=== PATIENT | male | born 2000 | race Caucasian/White ===

== ENCOUNTER 2025-05-06 23:45 | Day surgery (SDC) | payer OTHER, SELFPAY ==
[2025-05-07] VITALS (17 sets, daily range): BP systolic 117–145; BP diastolic 54–79; PULSE 49–92; RESP 16–20; TEMP 36.6–37.2; O2SAT 90–99; BMI 27.3
--- NOTE | 2025-05-07 00:25 | PC.NURSE ---
Tramaine was admitted from [place] [facility]. Report from RN Elsa [phone]. Patient received Flagyl/Rocephin at 2200 and Zofran, Toradol, and 1 L LR per [place] [facility]. Arrives with mom (Tomas) and friend. Updated with plan for telehealth provider to see patient and surgery tomorrow approximately 10:30 but subject to change-patient and family understand. IV 20# in RFA started in [place].
--- NOTE | 2025-05-07 02:32 | W.PM.THH&P_ITS ---
Telehealth- H&P: HPI History of Present Illness Date Seen: 05/07/25 Chief complaint: Surgery Narrative: Tramaine Lamar is seen as an Interactive Telehealth visit. Tramaine Lamar is a 24 year old male h/o depression presents with abdominal pain. Two days prior to admission patient felt funny. His head felt foggy. The next day, he developed generalized abdominal pain. In addition, he reports chills, nausea and diarrhea without melena and hematochezia. He denies fever, vomiting, dysuria, headaches. He also reports mild dizziness. He took tylenol prior to arrival to OSH ED and did feel better. Per discussion with general surgery, patient has the diagnosis of appendicitis. He was given ceftiraxone and metronidazole at the outside hospital. Family history mother: depression Father: none Social history Tobacco: none Alcohol 1-2 drinks per month Marijuana: every once in a while Medications: none allergies NKDA Review of Systems Status of ROS: Reports: 10 or more systems reviewed and unremarkable except as noted in History and below [facility] Medical History (Updated 05/07/25 @ 03:09 by Laney Keller MD) Depression ?F32.A - Depression, unspecified (ICD-10) Social History What is your current living situation?: I presently have a place to live Problems where you live: no known problems Problems where you live details: N/A In the past 12 months, utilities in danger of being shut off: no In past 12 months, lack of transportation kept you from medical appts, meetings, work, or getting things needed for daily living: no In the past 12 mos, have been you worried that your food would run out before you had money to buy more?: never true In the past 12 mos, the food you bought just didn't last and you didn't have money to buy more?: never true Highest level of school completed/degree received: high school graduate Smoking Status: Never smoker Do you use any of these nicotine containing products: Vaping Products Second hand tobacco smoke exposure: No How often do you have a drink containing alcohol: monthly or less Alcohol type: beer How many standard drinks containing alcohol do you have on a typical day: 1 or 2 AUDIT-C Alcohol total score: 1 Non-prescribed substance use: marijuana (any form) Caffeine: Yes How often does anyone, including family, friends and others, physically hurt you : never How often does anyone, including family, friends and others, insult or talk down to you: never How often does anyone, including family, friends and others, threaten you with harm: never How often does anyone, including family, friends and others, scream or curse at you: never service: Yes Meds Home Medications and Allergies Allergies Allergy/AdvReac Type Severity Reaction Status Date / Time No Known Drug Allergies Allergy Verified 05/07/25 01:09 Exam Narrative Exam Narrative: Physical Exam GENERAL: ?vital signs reviewed, well developed and nourished, in no distress HEENT: pupils are equal round and reactive to light, extraocular movements are grossly within normal limits and oral mucosa is moist. NECK: Supple without lymphadenopathy or thyromegaly according to nursing staff examination observation HEART: Regular rate and rhythm without any rubs, murmurs, or gallops. LUNGS: Clear to auscultation bilaterally with good air movement throughout ABDOMEN: Observation from nurse assisted exam, abdomen appears soft, generalized tenderness, and nondistended with Positive bowel sounds noted. EXTREMITIES: Strength and sensation is observed to be grossly within normal limits in the upper and lower extremities.? No focal strength deficit is observed. SKIN:? Observed warm and dry with color normal Const Vital Signs, click to edit/add: Vital Signs - 24 hr 05/07/25 00:00 Temperature 98.0 F Pulse Rate [Right Pulse Oximeter] 84 Respiratory Rate 16 Blood Pressure [Right Arm] 135/79 Pulse Oximetry 99 Oxygen Delivery Method Room Air Hospitalist - H&P: Result Labs Labs: from OSH WBC 11.7 H/H 16.8/49.2 Plt 260 lipase 23 Potassium 3.5 t. bili 0.[address] abd/pel per the radiology review Lung bases are clear. Liver is unremarkable. No biliary ductal dilatation. Gallbladder is normal. Mild splenic enlargement 16cm in length. No splenic mass. No perisplenic fluid. Pancrea, and adrenal glands are normal. kidneys, ureters, and bladder are normal. Normal size prostate. Mild dilatation of fluid-filled appendix, with mild associated appendiceal wall thickening and enhancement, compatible wiht early or mild acute appendicitis. The appendix lies in adriana anterior right lower quadrant... No periappendiceal fluid or abscess. Several borderline to mildly enlarged ileocolic nodes, likely reactive or inflammatory. Normal caliber abdominal aorta and IVC. Assessment and Plan Assessment and plan (1) Abdominal pain: Status: Acute Plan Appendicitis: per symptoms and CT imaging. General surgery is aware and have accepted patient. they plan to take patient to the OR in the morning. Patient received ceftriaxone and flagyl at outside hospital per discussion with ED staff. --continue IV abx --continue pain meds --continue IVF --recheck labs in Acute renal failure: likely due to hypovolemia from poor po intake and diarrhea --will hydrate and recheck renal status in AM. My hope is patient's labs show improvement prior to surgery h/o depression --no exacerbation at this time Full code DVT prophy : SCD Total Time Spent Total Time Spent: Patient seen via televideo. camera start time 234a Camera end time 247a Patietn was located in [facility] Provider was located at home and using [employer] equipment Telehealth: Statement Statement Telehealth Visit: Today's History and Physical is provided via interactive telehealth by Laney Keller MD.? Patient is located at [facility].? Provider is located at [employer] [facility].? Nursing staff assisted with the patient's exam. The visit being done today meets criteria for a telehealth visit and the patient or patient?s parent/guardian is aware the visit is a telehealth visit.
[2025-05-07] MEDS: POTASSIUM CHLORIDE 20 MEQ in 5 % DEXTROSE/0.45% SOD CHLOR 1,000 ML 75 MEQ IV (03:18)
[2025-05-07] MEDS: SODIUM CHLORIDE 0.9 % (FLUSH) 10 ML SYRINGE 5 ML IVF (03:19)
[2025-05-07] MEDS: metroNIDAZOLE 500 MG/100 ML PIGGYBACK 100 MG IVPB (06:17)
--- NOTE | 2025-05-07 06:37 | PC.NURSE ---
Addendum entered by Ludy Soto RN 05/07/25 08:05: Pt declined to change into gown upon admission when approached. Original Note: End of shift note [id number]: Pt A&Ox4 and able to make needs known. He is NPO at this time in prep for planned surgery today. Pt transferring/ambulating independently and has been continent of bladder. Pt's girlfriend spent the night and slept in recliner. Pt has been denying nausea and pain when asked.
--- NOTE | 2025-05-07 10:49 | P.GSCN_ITS ---
History of Present Illness Consult details Date Seen: 05/07/25 Consult date: 05/07/25 Narrative: 24-year-old male presented to outside hospital with right lower quadrant abdominal pain. Patient states that his pain started yesterday morning. The pain was described as sharp and throughout the day it became worse. Patient had nausea but no vomiting. He was passing gas. Because the pain was not improving, he presented to outside hospital. Patient was found to have elevated WBC of 11. An abdominal CT was obtained that I personally reviewed. His abdominal CT showed dilated wall enhancing appendix with minimal periappendiceal inflammation. There was no evidence of an abscess or phlegmon. Patient requested to come to the [facility], and was transferred to our hospital for surgical intervention. Patient continues to have abdominal pain but it is slightly improved. Review of Systems Narrative: General: no fevers HENT: no problems swallowing CV: no shortness of breath Resp: no cough GI: No nausea, vomiting, abdominal pain : no dysuria, no increased urinary frequency, no hematuria Skin: no new rashes Musculoskeletal: no back pain Neuro: no muscle weakness Psyche: no depression, no anxiety PFSH PFSH Medical History (Updated 05/07/25 @ 10:51 by Allen Solitario MD) Depression ?F32.A - Depression, unspecified (ICD-10) Surgical History (Updated 05/07/25 @ 10:51 by Allen Solitario MD) History of nasal surgery ?Z98.890 - Other specified postprocedural states (ICD-10) Social History (Updated 05/07/25 @ 10:51 by Allen Solitario MD) 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 What is your current living situation?: I presently have a place to live Problems where you live: no known problems Problems where you live details: N/A In the past 12 months, utilities in danger of being shut off: no In past 12 months, lack of transportation kept you from medical appts, meetings, work, or getting things needed for daily living: no In the past 12 mos, have been you worried that your food would run out before you had money to buy more?: never true In the past 12 mos, the food you bought just didn't last and you didn't have money to buy more?: never true Highest level of school completed/degree received: high school graduate Smoking Status: Never smoker Do you use any of these nicotine containing products: Vaping Products Second hand tobacco smoke exposure: No How often do you have a drink containing alcohol: monthly or less Alcohol type: beer How many standard drinks containing alcohol do you have on a typical day: 1 or 2 AUDIT-C Alcohol total score: 1 Non-prescribed substance use: marijuana (any form) Caffeine: Yes How often does anyone, including family, friends and others, physically hurt you : never How often does anyone, including family, friends and others, insult or talk down to you: never How often does anyone, including family, friends and others, threaten you with harm: never How often does anyone, including family, friends and others, scream or curse at you: never service: Yes Meds Home Medications and Allergies Allergies Allergy/AdvReac Type Severity Reaction Status Date / Time No Known Drug Allergies Allergy Verified 05/07/25 01:09 Exam Narrative: Exam Narrative: General appearance: Alert, cooperative, and in no distress Pulmonary: Chest symmetric, lungs clear bilaterally Cardiovascular Heart: Regular rate and rhythm, S1, S2, no murmurs/rubs/gallops Gastrointestinal Abdominal: soft, not distended, Tender to palpation in the right lower quadrant with rebound tenderness, no tenderness anywhere else. Skin: Normal skin color, texture, and turgor. No rashes or lesions. Psychiatric: Alert, cooperative, normal affect. Const: Vital Signs, click to edit/add: Vital Signs - 24 hr 05/07/25 00:00 05/07/25 00:18 05/07/25 02:36 Temperature 98.0 F 98.1 F Pulse Rate [Right Pulse Oximeter] 84 64 Respiratory Rate 16 16 16 Blood Pressure [Ri ght Arm] 135/79 119/67 Pulse Oximetry 99 99 99 Oxygen Delivery Me thod Room Air Room Air Room Air Results Labs Labs: All other labs normal. Progress Note:A&P Assessment and plan (1) Acute appendicitis: Status: Acute Plan 24-year-old male with acute appendicitis. I discussed with the patient and his family his laboratory and CT findings. Patient has dilated wall enhancing appendix on his CT scan. On clinical exam he has tenderness to palpation in the right lower quadrant. This is suspicious for acute appendicitis. I recommended to proceed with laparoscopic appendectomy. The procedure was discussed in detail. The risks associated procedure including infection, bleeding, injury to intra-abdominal organs, and the need for additional procedures were all discussed with the patient, and he agreed to proceed.
[2025-05-07] MEDS: LACTATED RINGERS 1000 ML 1,000 ML 100 ML IV (11:08)
[2025-05-07] MEDS: PIPERACILLIN/TAZOBACTAM 3.375 GM INJ IVPB (11:21)
[2025-05-07] MEDS: LIDOCAINE 1%-EPI 1:100,000 20 ML INFILTRATI (11:45)
[2025-05-07] MEDS: BUPIVACAINE 0.25% 30 ML INJECTION (11:45)
--- NOTE | 2025-05-07 11:57 | PM.GSPRC ---
Operative Note Date of procedure: 05/07/25 Pre-op diagnosis: 1. Acute appendicitis. Post-op diagnosis: Same Type of Procedure: 1. Laparoscopic appendectomy. Indications: 24-year-old male was seen in emergency room at the outside hospital. He was diagnosed with acute appendicitis. Patient requested to be transferred to [facility] for surgical intervention. Patient was then directly admitted to [facility]. Patient's pain started yesterday in the morning and was persistent. The pain was described as sharp and located in the right lower quadrant. Patient had nausea but no vomiting. Upon his workup he was found to have elevated WBC of 11. An abdominal CT was obtained that showed a dilated wall enhancing appendix with no periappendiceal abscess. On clinical exam patient had tenderness to palpation the right lower quadrant with rebound tenderness. Given patient's clinical history and his imaging findings, acute appendicitis was suspected, and laparoscopic appendectomy was recommended. The procedure was discussed in detail. The risks associated procedure including infection, bleeding, and injury to intra-abdominal organs were all discussed with the patient, and he agreed to proceed. Procedure Description: After discussing the risks and benefits of the procedure, the patient signed informed consent.? The operative site was marked and the patient was brought to the operating room and placed on the operating table in supine position.? Care was taken to pad the patient's pressure points.?? The patient was then intubated by anesthesia.?? The operative site was then prepped and draped in the usual sterile fashion.? A time-out was then performed. A 5-mm laparoscopy port was placed in the left upper quadrant guided by a 5-mm laparoscope placed into a translucent trochar. Passage through the layers of the abdominal wall was visualized with the laparoscope. A pneumoperitoneum was established. A 30-degree 5-mm laparoscope was advanced into the abdomen. The abdomen was briefly surveyed, and there was no evidence of diffuse peritonitis. A 12-mm port and a 5-mm port were placed in the left low quadrant and suprapubically, respectively, under direct visualization by laparoscope. Left upper quadrant entrance port was then examined intraabdominally by placing the camera through the left lower quadrant port and no intraabdominal injury was seen. The patient was placed in Trendelenburg position, allowing the abdominal contents to shift cephalad. The small bowel was moved toward the midline in the abdomen and this allowed for identification of the appendix. Distal appendix appeared to be inflamed. There is no evidence of perforation. The appendix was grasped and dissected from the peritoneum using Harmonic scalpel. A [place] clamp was passed between the appendiceal mesentery and the base of the appendix, creating a window. The appendiceal artery was identified and circumferentially dissected with Harmonic scalpel. The appendiceal artery was then clipped with 2 5 mm clips on the patient's side and a single clip on the specimen side and divided with Harmonic scalpel between the clips. A vascular load Endo-MARTIN stapler was advanced through the 12-mm port into the abdomen and appendix was stapled off at its base. The appendix was then placed in an endoscopic retrieval bag and extracted from the abdomen through the 12-mm port. The abdomen was surveyed for hemostasis. Minimal oozing was seen from the staple line. This was controlled with vascular clips. The 12-mm port was withdrawn and the fascial defect was closed with A [id number] 0-0 Vicryl stitch. This closure was examined intra-abdominally, and no intra-abdominal structures were incarcerated in the closure. The 5-mm port was removed under direct visualization. The left upper quadrant port was used to evacuate the pneumoperitoneum and then withdrawn. The skin incisions were closed with 4-0 monocryl. Steri-Strips were applied over the incisions. All counts were correct at the end of the case. The patient tolerated this procedure well and was transferred to PACU in stable condition. Findings: Inflamed distal appendix. No evidence of perforation. Anesthesia: GETA Surgeon: Allen Solitario MD Estimated blood loss (mL): 5 Specimen: Appendix Condition: stable Disposition: PACU
--- NOTE | 2025-05-07 12:08 | P.ANES_ITS ---
Anesthesia Charges Start Date/Time Anesthesia Start Date: 05/07/25 Anesthesia Start Time: 11:08 Stop Date/Time Anesthesia Stop Date: 05/07/25 Anesthesia Stop Time: 12:09 Coding CPT Codes CPT Codes: ANESTH SURG LOWER ABDOMEN - 55245 ([id number]) P1 - NORMAL HEALTHY PATIENT, QK - THEATER TEACHER 2-4 CNCRNT ANES PROC, QX - SUMMER NANNY SVVance W/ MED DIRECTION
--- NOTE | 2025-05-07 12:08 | W.ANESCHARGE ---
Anesthesia Charges Start Date/Time Anesthesia Start Date: 05/07/25 Anesthesia Start Time: 11:08 Stop Date/Time Anesthesia Stop Date: 05/07/25 Anesthesia Stop Time: 12:09 Coding CPT Codes CPT Codes: ANESTH SURG LOWER ABDOMEN - 11321 ([id number]) P1 - NORMAL HEALTHY PATIENT, QK - CONDITIONING YARD SUPERVISOR 2-4 CNCRNT ANES PROC, QX - INFORMATION RECEPTIONIST SVVance W/ MED DIRECTION
--- NOTE | 2025-05-07 12:19 | P.ANES_ITS ---
Anesthesia Charges Start Date/Time Anesthesia Start Date: 05/07/25 Anesthesia Start Time: 11:08 Stop Date/Time Anesthesia Stop Date: 05/07/25 Anesthesia Stop Time: 12:09 Coding CPT Codes CPT Codes: ANESTH SURG LOWER ABDOMEN - 20453 ([id number]) P1 - NORMAL HEALTHY PATIENT, QK - HELIARC WELDER 2-4 CNCRNT ANES PROC, QX - DIGITAL MARKETING EXECUTIVE SVVance W/ MED DIRECTION
--- NOTE | 2025-05-07 12:19 | W.ANESCHARGE ---
Anesthesia Charges Start Date/Time Anesthesia Start Date: 05/07/25 Anesthesia Start Time: 11:08 Stop Date/Time Anesthesia Stop Date: 05/07/25 Anesthesia Stop Time: 12:09 Coding CPT Codes CPT Codes: ANESTH SURG LOWER ABDOMEN - 03014 ([id number]) P1 - NORMAL HEALTHY PATIENT, QK - MEDICAL CLAIMS ANALYST 2-4 CNCRNT ANES PROC, QX - CITY WELLNESS COORDINATOR SVVance W/ MED DIRECTION
[2025-05-07] MEDS: HYDROCODONE-ACETAMIN 5-325 MG 1 TAB PO (13:13)
== END 2025-05-07 14:14 | disposition home or self-care (01) ==
LOC: SS 23:49 → MEDSURG 05-07 06:54 → SS 05-07 13:16
PROVIDERS: PCP Pediatrics; Visit Provider Surgery
PROC: 0DTJ4ZZ Resection of Appendix, Percutaneous Endoscopic Approach (ICD-10-PCS; CPT 44970; principal; 2025-05-07 10:30)
DX: K35.80 Unspecified acute appendicitis (principal); N17.9 Acute kidney failure, unspecified; R42 Dizziness and giddiness
CPT/HCPCS: 44970; 00840; 88304; A9270; J0330; J0665; J1100; J1836; J1885; J2250; J2405; J2543; J2704; J2710; J3010; J3480; J7120; S5010